=== PATIENT | female | born 1995 | race African-American/Black ===

== ENCOUNTER 2018-01-13 17:14 | Emergency (ER) | payer MEDICAID ==
[2018-01-13 17:35] VITALS: BP 164/100
--- NOTE | 2018-01-13 18:22 | ER Document Report ---
ED Medical Screen (RME) - General Chief Complaint: Vag Bleeding, +preg <12wks Stated Complaint: VAGINAL BLEEDING Time Seen by Provider: 01/13/18 18:16 Notes: 22-year-old female with untreated hypertension, LMP 12/11/2017, positive hCG 3 days ago, spotting 2 days with mild cramps. A1 TRAVEL OUTSIDE OF THE [place] IN LAST 30 DAYS: No - Related Data Allergies/Adverse Reactions: No Known Allergies Allergy (Verified 01/13/18 17:14) Physical Exam - Vital signs Vitals: Temp Pulse Resp BP Pulse Ox 98.7 F 81 16 164/100 H 100 01/13/18 17:33 01/13/18 17:33 01/13/18 17:33 01/13/18 17:33 01/13/18 17:33 Course - Vital Signs Vital signs: Temp Pulse Resp BP Pulse Ox 98.7 F 81 16 164/100 H 100 01/13/18 17:33 01/13/18 17:33 01/13/18 17:33 01/13/18 17:33 01/13/18 17:33
[2018-01-13 18:50] LABS: ABSOLUTE EOSINOPHILS # (AUTO) 0.1 10^3/uL (0.0-0.6); ABSOLUTE LYMPHOCYTES (AUTO) 1.4 10^3/uL (0.5-4.7); ABSOLUTE MONOCYTES (AUTO) 0.6 10^3/uL (0.1-1.4); ABSOLUTE NEUT (AUTO) 3.1 10^3/uL (1.7-8.2); BASOPHILS % (AUTO) 0.7 % (0-2); EOSINOPHILS % (AUTO) 1.3 % (0-6); HEMOGLOBIN 12.7 g/dL (12.0-15.5); LYMPHOCYTES % (AUTO) 26.8 % (13-45); MEAN CORPUSCULAR HEMOGLOBIN 26.8 pg (27.0-33.4); MEAN CORPUSCULAR HGB CONC 33.3 g/dL (32.0-36.0); MEAN CORPUSCULAR VOLUME 81 fl (80-97); MONOCYTES % (AUTO) 10.7 % (3-13); PLATELET COUNT 252 10^3/uL (150-450); RED BLOOD COUNT 4.72 10^6/uL (3.72-5.28); RED CELL DISTRIBUTION WIDTH 14.1 % (11.5-14.0); SEGMENTED NEUTROPHILS % (AUTO) 60.5 % (42-78); TOTAL CELLS COUNTED % (AUTO) 100 %; WHITE BLOOD COUNT 5.2 10^3/uL (4.0-10.5)
[2018-01-13 18:51] LABS: APPEARANCE,URINE CLEAR; BILIRUBIN,URINE NEGATIVE (NEGATIVE); COLOR,URINE YELLOW; GLUCOSE, URINE NEGATIVE (NEGATIVE); KETONES,URINE NEGATIVE (NEGATIVE); LEUKOCYTE ESTERASE,URINE NEGATIVE (NEGATIVE); NITRITE,URINE NEGATIVE (NEGATIVE); PROTEIN,URINE 30 mg/dL (NEGATIVE)
[2018-01-13 19:01] LABS: ALANINE AMINOTRANSFERASE 17 U/L (9-52); ALBUMIN 4.5 g/dL (3.5-5.0); ALKALINE PHOSPHATASE 121 U/L (38-126); ANION GAP 13 (5-19); ASPARTATE AMINO TRANSFERASE 22 U/L (14-36); BILIRUBIN,DIRECT 0.3 mg/dL (0.0-0.4); BILIRUBIN,TOTAL 0.3 mg/dL (0.2-1.3); BLOOD UREA NITROGEN 12 mg/dL (7-20); CALCIUM 9.6 mg/dL (8.4-10.2); CARBON DIOXIDE 27 mmol/L (22-30); CHLORIDE 105 mmol/L (98-107); GLUCOSE 87 mg/dL (75-110); POTASSIUM 3.9 mmol/L (3.6-5.0); SODIUM 144.7 mmol/L (137-145); TOTAL PROTEIN 7.7 g/dL (6.3-8.2)
--- NOTE | 2018-01-13 19:46 | ER Document Report ---
ED General - General Mode of Arrival: Ambulatory Information source: Patient TRAVEL OUTSIDE OF THE [place] IN LAST 30 DAYS: No <MARLI SALDIVAR - Last Filed: 01/13/18 22:49> <ALEJO PONCE - Last Filed: 01/14/18 01:39> - General Chief Complaint: Vag Bleeding, +preg <12wks Stated Complaint: VAGINAL BLEEDING Time Seen by Provider: 01/13/18 18:16 Notes: 22 y.o female with PMHx of asthma presents to the ED with vaginal bleeding of onset yesterday. Pt reports that her last menstrual period was December 11. This is her second , she had an 2 years ago, A1. Pt also notes intermittent cramping also of onset yesterday. She states there was a significant amount of blood. She denies any vomiting. She denies any other medical issues. (MARLI SALDIVAR) - Related Data Allergies/Adverse Reactions: No Known Allergies Allergy (Verified 01/13/18 17:14) Past Medical History - General Information source: Patient - Social History Smoking Status: Never Smoker Chew tobacco use (# tins/day): No Frequency of alcohol use: None Drug Abuse: None Family History: Reviewed & Not Pertinent Patient has suicidal ideation: No Patient has homicidal ideation: No Renal/ Medical History: Denies: Hx Peritoneal Dialysis <MARLI SALDIVAR - Last Filed: 01/13/18 22:49> Review of Systems - Review of Systems Constitutional: No symptoms reported EENT: No symptoms reported Cardiovascular: No symptoms reported Respiratory: No symptoms reported Gastrointestinal: See HPI, Abdominal pain. denies: Vomiting Genitourinary: No symptoms reported Female Genitourinary: See HPI, Last menstrual period - December 11, , Vaginal bleeding Musculoskeletal: No symptoms reported Skin: No symptoms reported Hematologic/Lymphatic: No symptoms reported Neurological/Psychological: No symptoms reported -: Yes All other systems reviewed and negative <MARLI SALDIVAR - Last Filed: 01/13/18 22:49> Physical Exam <MARLI SALDIVAR - Last Filed: 01/13/18 22:49> <ALEJO PONCE - Last Filed: 01/14/18 01:39> - Vital signs Vitals: Temp Pulse Resp BP Pulse Ox 98.7 F 81 16 164/100 H 100 01/13/18 17:33 01/13/18 17:33 01/13/18 17:33 01/13/18 17:33 01/13/18 17:33 - Notes Notes: Physical Exam: General: Alert, appears well. HEENT: Normocephalic. Atraumatic. PERRL. Extraocular movements intact. Oropharynx clear. Neck: Supple. Non-tender. Respiratory: No respiratory distress. Clear and equal breath sounds bilaterally. Cardiovascular: Regular rate and rhythm. Abdominal: Normal Inspection. Non-tender. No distension. Normal Bowel Sounds. Back: Non-tender. No deformity or step off. Extremities: Moves all four extremities. Upper extremities: Normal inspection. Normal ROM. Lower extremities: Normal inspection. No edema. Normal ROM. Neurological: Normal cognition. AAOx3. Normal speech. Psychological: Normal affect. Normal Mood. Skin: Warm. Dry. Normal color. (MARLI SALDIVAR) Course - Laboratory Result Diagrams: 01/13/18 18:36 01/13/18 18:36 <MARLI SALDIVAR - Last Filed: 01/13/18 22:49> - Laboratory Result Diagrams: 01/13/18 18:36 01/13/18 18:36 <ALEJO PONCE - Last Filed: 01/14/18 01:39> - Re-evaluation Re-evalutation: 01/13/18 20:41 Patient's test is negative. She states she had positive test January 10. Explained to patient if it was positive her beta hCG levels should still be detectable which were not today. Ultrasound also shows no evidence of regnancy. Patient states she is relieved. Will be discharged at this time (ALEJO PONCE) - Vital Signs Vital signs: Temp Pulse Resp BP Pulse Ox 98.7 F 81 16 164/100 H 100 01/13/18 17:33 01/13/18 17:33 01/13/18 17:33 01/13/18 17:33 01/13/18 17:33 - Laboratory Laboratory results interpreted by me: 01/13/18 01/13/18 17:35 18:36 MCH 26.8 L RDW 14.1 H Urine Protein 30 H Urine Blood LARGE H Urine Urobilinogen 2.0 H Discharge <MARLI SALDIVAR - Last Filed: 01/13/18 22:49> <ALEJO PONCE - Last Filed: 01/14/18 01:39> - Discharge Clinical Impression: Vaginal bleeding Condition: Good Disposition: HOME, SELF-CARE Instructions: Vaginal Bleeding ([facility]) Referrals: [facility] [NO LOCAL MD] - Follow up as needed Scribe Attestation: 01/14/18 01:39 I personally performed the services described documentation, reviewed and edited the documentation which was dictated to describe my presence, and it accurately records my words and actions. (ALEJO PONCE) Scribe Documentation - Scribe Written by Scribe:: Anna Rodgers [birth year] acting as scribe for :: Paulo <MARLI SALDIVAR - Last Filed: 01/13/18 22:49>
--- NOTE | 2018-01-13 20:12 | RADIOLOGY REPORT (SQ) ---
EXAM DESCRIPTION: U/S OB TRANSVAGINAL W/O DOP COMPLETED DATE/TIME: 01/13/2018 7:57 pm REASON FOR STUDY: LMP 6-1-18, +hCg, spotting, crampiong COMPARISON: None. TECHNIQUE: Transvaginal static and realtime grayscale images acquired of the pelvis. Additional elijah cted spectral and color Doppler images recorded. All images stored on PACs. bHCG: Less than 2.4 CLINICAL DATES: 4 weeks 5 days LIMITATIONS: None. FINDINGS: No IUP identified. UTERUS: No masses. No anomalies. CERVICAL LENGTH: 3.4 center Closed. RIGHT ADNEXA: Normal ovary with normal vascular flow. No adnexal free fluid. No adnexal masses. LEFT ADNEXA: Normal ovary with normal vascular flow. No adnexal free fluid. No adnexal masses. FREE FLUID: Trace. OTHER: No other significant finding. IMPRESSION: No IUP identified. No adnexal masses identified. Trimester of : First - 0 to 13 weeks. TECHNICAL DOCUMENTATION: JOB ID: [id number] 2010 [employer]- All Rights Reserved Reading location - IP/workstation name: [employer]
== END 2018-01-13 20:53 | disposition home or self-care (01) ==
LOC: ER 17:14
DX: N93.9 Abnormal uterine and vaginal bleeding, unspecified (principal); R10.9 Unspecified abdominal pain
CPT/HCPCS: 36415; 76817; 80053; 81001; 84702; 85025; 86900; 86901; 99284

== ENCOUNTER 2018-12-13 12:00 | Emergency (ER) | payer SELFPAY ==
--- NOTE | 2018-12-13 14:28 | ER Document Report ---
HPI - HPI Time Seen by Provider: 12/13/18 13:23 Pain Level: 3 Notes: Patient is an otherwise healthy 23-year-old female presenting with multiple complaints today. Patient reports right ear pain x2 days and also reports abscess to her right axilla x1 week. Patient reports history of abscess in the past, states that his drain on its own and she has never had an incision and drainage. Patient denies any chronic medical conditions and reports all immunizations are up-to-date. - CONSTITUTIONAL Constitutional: DENIES: Fever, Chills - EENT EENT: REPORTS: Ear Pain. DENIES: Sore Throat, Eye problems - NEURO Neurology: DENIES: Headache, Weakness, Vision blurred, Dizzinesss / Vertigo - CARDIOVASCULAR Cardiovascular: DENIES: Chest pain - RESPIRATORY Respiratory: DENIES: Trouble Breathing, Coughing - GASTROINTESTINAL Gastrointestinal: DENIES: Abdominal Pain, Black / Bloody Stools - URINARY Urinary: DENIES: Dysuria, Urgency, Frequency - REPRODUCTIVE Reproductive: DENIES: : - MUSCULOSKELETAL Musculoskeletal: DENIES: Extremity pain Past Medical History - General Information source: Patient - Social History Smoking Status: Never Smoker Chew tobacco use (# tins/day): No Frequency of alcohol use: None Drug Abuse: None Family History: Reviewed & Not Pertinent Patient has suicidal ideation: No Patient has homicidal ideation: No - Past Medical History Cardiac Medical History: Reports: Hx Hypertension Pulmonary Medical History: Reports: Hx Asthma Renal/ Medical History: Denies: Hx Peritoneal Dialysis Past Surgical History: Reports: Hx Gynecologic Surgery - D AND C Vertical Provider Document - CONSTITUTIONAL Notes: PHYSICAL EXAMINATION: GENERAL: Well-appearing, well-nourished and in no acute distress. HEAD: Atraumatic, normocephalic. EYES: Pupils equal round extraocular movements intact, conjunctiva are normal. ENT: Right TM erythematous and bulging, left TM unremarkable. NECK: Normal range of motion LUNGS: No respiratory distress Musculoskeletal: Normal range of motion NEUROLOGICAL: Normal speech, normal gait. PSYCH: Normal mood, normal affect. SKIN: Small area of erythema with induration and fluctuance noted to right axilla. - INFECTION CONTROL TRAVEL OUTSIDE OF THE [place] IN LAST 30 DAYS: No Course - Re-evaluation Re-evalutation: Examination consistent with otitis media. Abscess was incised and drained, patient tolerated procedure well, see procedure note. Patient discharged home in stable condition with strict ED return precautions. - Vital Signs Vital signs: Temp Pulse Resp BP Pulse Ox 98.6 F 75 18 168/104 H 100 12/13/18 12:12 12/13/18 12:12 12/13/18 12:12 12/13/18 12:12 12/13/18 12:12 Procedures - Incision and Drainage Right Axilla Type: Simple Blade size: 11 I&D procedure: Betadine prep applied Incision Method: Incision made by scalpel Discharge - Discharge Clinical Impression: Abscess Otitis media Qualifiers: Otitis media type: unspecified Chronicity: acute Qualified Code(s): H66.90 - Otitis media, unspecified, unspecified ear Condition: Stable Disposition: HOME, SELF-CARE Additional Instructions: You were seen for an abscess that required drainage. Please clean this area with soap and water twice daily and apply a topical antibiotic. Dress the area after each cleaning. Please return if you develop fever, vomiting, the pain at the site worsens, you notice spreading redness from the area, or you have any other symptoms that are concerning to you. Your child has been diagnosed as having an ear infection. Please give them the amoxicillin twice daily for 10 days. Follow-up with your retail wireless associate as needed. Return if your child becomes lethargic, has persistent vomiting, becomes confused, has facial swelling, worsening pain despite antibiotics, or any other symptoms that are concerning to you. You should give your child ibuprofen or Tylenol as needed for discomfort. Prescriptions: Amlodipine Besylate [Norvasc 5 mg Tablet] 5 mg PO DAILY #30 tablet Cephalexin [Cephalexin 500 MG Tablet] 1 tab PO QID #28 tablet
[2018-12-13 14:44] VITALS: BP 148/99
== END 2018-12-13 14:41 | disposition home or self-care (01) ==
LOC: ER 12:00
PROC: 0H9BXZZ Drainage of Right Upper Arm Skin, External Approach (ICD-10-PCS; principal; 2018-12-13)
DX: L02.411 Cutaneous abscess of right axilla (principal); H66.91 Otitis media, unspecified, right ear
CPT/HCPCS: 99283

== ENCOUNTER 2019-10-18 10:17 | Inpatient (IN) | payer MEDICAID ==
[2019-10-18] MEDS ORDERED: HYDRALAZINE HCL INJ/PF 20 MG/1 ML SDV ONE ×2 (10:59→16:59)
[2019-10-18 12:03] LABS: ABSOLUTE BASOPHILS # (AUTO) 0.1 10^3/uL (0.0-0.2); ABSOLUTE LYMPHOCYTES (AUTO) 1.1 10^3/uL (0.5-4.7); ABSOLUTE MONOCYTES (AUTO) 0.5 10^3/uL (0.1-1.4); ABSOLUTE NEUT (AUTO) 6.5 10^3/uL (1.7-8.2); BASOPHILS % (AUTO) 0.6 % (0-2); EOSINOPHILS % (AUTO) 0.5 % (0-6); HEMATOCRIT 35.6 % (36.0-47.0); HEMOGLOBIN 12.6 g/dL (12.0-15.5); LYMPHOCYTES % (AUTO) 13.8 % (13-45); MEAN CORPUSCULAR HEMOGLOBIN 29.1 pg (27.0-33.4); MEAN CORPUSCULAR HGB CONC 35.6 g/dL (32.0-36.0); MEAN CORPUSCULAR VOLUME 82 fl (80-97); MONOCYTES % (AUTO) 6.2 % (3-13); PLATELET COUNT 165 10^3/uL (150-450); RED BLOOD COUNT 4.35 10^6/uL (3.72-5.28); RED CELL DISTRIBUTION WIDTH 14.6 % (11.5-14.0); SEGMENTED NEUTROPHILS % (AUTO) 78.9 % (42-78); TOTAL CELLS COUNTED % (AUTO) 100 %; WHITE BLOOD COUNT 8.3 10^3/uL (4.0-10.5)
[2019-10-18 12:19] LABS: ALBUMIN 3.4 g/dL (3.5-5.0); ALKALINE PHOSPHATASE 292 U/L (38-126); ANION GAP 9 (5-19); ASPARTATE AMINO TRANSFERASE 26 U/L (14-36); BILIRUBIN,DIRECT 0.2 mg/dL (0.0-0.4); BILIRUBIN,TOTAL 0.5 mg/dL (0.2-1.3); BLOOD UREA NITROGEN 13 mg/dL (7-20); CALCIUM 8.8 mg/dL (8.4-10.2); CARBON DIOXIDE 16 mmol/L (22-30); CHLORIDE 108 mmol/L (98-107); POTASSIUM 4.1 mmol/L (3.6-5.0); TOTAL PROTEIN 6.2 g/dL (6.3-8.2); URIC ACID 6.9 mg/dL (2.5-6.2)
[2019-10-18 12:23] LABS: GLUCOSE 65 mg/dL (75-110)
[2019-10-18 12:42] LABS: APPEARANCE,URINE CLEAR; BILIRUBIN,URINE NEGATIVE (NEGATIVE); COLOR,URINE STRAW; GLUCOSE, URINE NEGATIVE (NEGATIVE); KETONES,URINE NEGATIVE (NEGATIVE); LEUKOCYTE ESTERASE,URINE NEGATIVE (NEGATIVE); NITRITE,URINE NEGATIVE (NEGATIVE); PROTEIN,URINE 100 mg/dL (NEGATIVE); URINE SPECIFIC GRAVITY 1.005; UROBILINOGEN,URINE NEGATIVE mg/dL (<2.0)
[2019-10-18 12:56] LABS: URINE AMPHETAMINES SCREEN NEGATIVE; URINE BARBITURATES SCREEN NEGATIVE; URINE BENZODIAZEPINES SCREEN NEGATIVE; URINE COCAINE SCREEN NEGATIVE; URINE MARIJUANA (THC) SCREEN NEGATIVE; URINE METHADONE SCREEN NEGATIVE; URINE PHENCYCLIDINE SCREEN NEGATIVE
[2019-10-18 13:00] LABS: URINE CREATININE 30.8 mg/dL (16-327)
[2019-10-18 13:05] LABS: UR PRO/CREAT RATIO RESULT 8.1 mg/mg (0.0-0.2); URINE PROTEIN 248.3 mg/dL (<12)
--- NOTE | 2019-10-18 14:16 | Admission Physical ---
Datetime Report Generated by CPN: 10/18/2019 14:16 CURRENT ADMISSION Chief Complaint: Sent from OB Office for Evaluation and Treatment - Please Specify Indication for Induction: Not Applicable Admit Impression : , Intrauterine ; No Active Labor; Obstetrical Complication Admit Impression- Other: 35.5 wk IUP CHTN with superimposed pre-eclampsia--has been on Labetalol + CT x 2 RH neg Admit Plan: Admit to Unit; Observation/Evaluation ALLERGIES Medication Allergies: No Known Allergies (10/18/2019) OBSTETRICAL HISTORY EDC: 11/17/2019 00:00 PHYSICAL EXAM General: Normal HEENT: Normal Neurologic: Normal Thyroid: Deferred Heart: Normal Lungs: Normal Breast: Deferred Back: Deferred Abdomen: Normal Genitourinary Exam: Normal Extremities: Normal DTRs: Abnormal Pelvic Type: Adequate Physical Exam Comments: DTRs Brisk bilaterally No Clonus Denies H/a Denies Vision changes Denies epigastric pain Strong vaginal odor, will order Flagyl SATHISH for TC Vital Signs: Reviewed VAGINAL EXAM Dilatation: 1 Effacement: 0 Station: -2 MEMBRANES Membranes: Intact FETUS A EGA: 35.5 FHR- Baseline: 135 Variability: Moderate 6-25bpm Accelerations: 15X15 Decelerations: Variable FHR Category: Category I Estimated Weight (gm): 2500 Presentation: Vertex Admit Comment: Admit for BP management, 24*urine, repeat labs, steroids, sono of baby for growth/renaldo Sent from [facility] with Severe range BPs 183/130, 192/134, 217/148 Collect GBS C/W Dr. Lee for POC INFORMED CONSENT Assignment: Janice Lee MD Signature: with User ID: [email or web address] : with User ID: [email or web address]
[2019-10-18] MEDS ORDERED: METRONIDAZOLE 500 MG TABLET PO ONE (14:25)
[2019-10-18] MEDS ORDERED: BETAMET ACET/BETAMET NA INJ 6 MG/1 ML IM ONE (14:27)
[2019-10-18] MEDS ORDERED: BETAMET ACET/BETAMET NA INJ 6 MG/1 ML ONE (14:40)
--- NOTE | 2019-10-18 14:48 | RADIOLOGY REPORT (SQ) ---
EXAM DESCRIPTION: U/S OB LIMITED IMAGES COMPLETED DATE/TIME: 10/18/2019 2:40 pm REASON FOR STUDY: severe HTN COMPARISON: None. TECHNIQUE: Limited transabdominal grayscale ultrasound for evaluation of specific requested obstetri ashok parameters. LIMITATIONS: None. FINDINGS: CERVICAL LENGTH: 2.8 cm. Closed. RICO: 12.3 cm. FHR: 143 beats per minute. PRESENTATION: Cephalic. PLACENTA: Posterior ANATOMY: Not assessed OTHER: Estimated gestational age is 32 weeks 5 days. IMPRESSION: LIMITED OBSTETRICAL ULTRASOUND WITH MEASURED PARAMETERS DELINEATED ABOVE. Trimester of : Third trimester - 28 weeks to delivery. TECHNICAL DOCUMENTATION: JOB ID: [id number] 2010 [employer]- All Rights Reserved Reading location - IP/workstation name: [email or web address]
[2019-10-18] MEDS ORDERED: METRONIDAZOLE 500 MG TABLET ONE (15:04)
[2019-10-18] MEDS ORDERED: LABETALOL HCL 200 MG TABLET ONE ×2 (16:07→21:53)
[2019-10-18] MEDS ORDERED: HYDRALAZINE HCL INJ/PF 20 MG/1 ML SDV IV PRN (16:10)
[2019-10-18] MEDS: LABETALOL HCL 200 MG TABLET PO SCH ×2 (16:10→21:57)
[2019-10-18 16:49] LABS: CHLAM PCR NOT DETECTED (NOT DETECT)
[2019-10-18] MEDS ORDERED: NIFEDIPINE 30 MG TAB.ER.24 PO ONE (17:49)
[2019-10-19] MEDS ORDERED: LABETALOL HCL 200 MG TABLET ONE (05:57)
[2019-10-19] MEDS: LABETALOL HCL 200 MG TABLET PO SCH ×3 (06:01→22:07)
[2019-10-19 06:32] LABS: ABSOLUTE LYMPHOCYTES (AUTO) 0.9 10^3/uL (0.5-4.7); ABSOLUTE MONOCYTES (AUTO) 0.2 10^3/uL (0.1-1.4); ABSOLUTE NEUT (AUTO) 8.1 10^3/uL (1.7-8.2); BASOPHILS % (AUTO) 0.2 % (0-2); HEMATOCRIT 34.2 % (36.0-47.0); HEMOGLOBIN 11.9 g/dL (12.0-15.5); LYMPHOCYTES % (AUTO) 9.8 % (13-45); MEAN CORPUSCULAR HEMOGLOBIN 29.1 pg (27.0-33.4); MEAN CORPUSCULAR HGB CONC 34.9 g/dL (32.0-36.0); MEAN CORPUSCULAR VOLUME 83 fl (80-97); MONOCYTES % (AUTO) 2.4 % (3-13); PLATELET COUNT 185 10^3/uL (150-450); RED CELL DISTRIBUTION WIDTH 14.7 % (11.5-14.0); SEGMENTED NEUTROPHILS % (AUTO) 87.6 % (42-78); TOTAL CELLS COUNTED % (AUTO) 100 %; WHITE BLOOD COUNT 9.2 10^3/uL (4.0-10.5)
[2019-10-19 06:56] LABS: ALBUMIN 3.4 g/dL (3.5-5.0); ALKALINE PHOSPHATASE 266 U/L (38-126); ANION GAP 12 (5-19); ASPARTATE AMINO TRANSFERASE 28 U/L (14-36); BILIRUBIN,DIRECT 0.2 mg/dL (0.0-0.4); BILIRUBIN,TOTAL 0.5 mg/dL (0.2-1.3); BLOOD UREA NITROGEN 19 mg/dL (7-20); CALCIUM 9.5 mg/dL (8.4-10.2); CARBON DIOXIDE 15 mmol/L (22-30); CHLORIDE 107 mmol/L (98-107); GLUCOSE 105 mg/dL (75-110); POTASSIUM 4.4 mmol/L (3.6-5.0); TOTAL PROTEIN 6.4 g/dL (6.3-8.2)
[2019-10-19] MEDS: NIFEDIPINE 30 MG TAB.ER.24 PO SCH ×2 (08:43→10:42)
[2019-10-19 14:22] LABS: 24 HOUR URINE PROTEIN RESULT 2336 mg/day (42-225); URINE PROTEIN 284.9 mg/dL (<12)
[2019-10-19] MEDS ORDERED: BETAMET ACET/BETAMET NA INJ 6 MG/1 ML IM SCH ×2 (14:46→15:15)
[2019-10-19] MEDS ORDERED: BETAMET ACET/BETAMET NA INJ 6 MG/1 ML IM ONE (15:30)
--- NOTE | 2019-10-19 21:04 | Non Stress Test Report ---
Non Stress Test Datetime Report Generated by CPN: 10/19/2019 21:03 DEMOGRAPHIC EGA NST: 35.6 VITAL SIGNS Temperature - NST: 98.3 Pulse - NST: 98 RESP - NST: 18 NBPSYS NST: 115 NBPDIA NST: 65 MONITORING Monitor Explained: Monitor Explained; Test Explained; Patient Verbalized Understanding Time on Monitor: 10/19/2019 07:20 Time off Monitor: 10/19/2019 07:45 NST Duration: 25 NST INTERVENTIONS NST Interventions: PO Hydration Physician Notified NST: Dr Martínez BABY A: [id number] BABY A Movement : Present Contraction Frequency : none FHR Baseline : 135 Accelerations : 15X15 Decelerations : None Variability : Moderate 6-25bpm NST Review: Meets Criteria for Reactive NST NST Review and Verified By : B Baidy RN NST Results: Reactive NST REPORT Report Trigger: Send Report
[2019-10-20] MEDS ORDERED: MAG HYDROX/AL HYDROX/SIMETH SUSP 30 ML UDCUP PO PRN (02:08)
[2019-10-20] MEDS ORDERED: ZOLPIDEM TARTRATE 5 MG TABLET PO PRN (02:08)
[2019-10-20] MEDS ORDERED: ACETAMINOPHEN 325 MG TABLET PO PRN (02:08)
[2019-10-20] MEDS ORDERED: DINOPROSTONE 10 MG VAGINAL INSERT.SR PV ONE (02:08)
[2019-10-20] MEDS ORDERED: DINOPROSTONE 10 MG VAGINAL INSERT.SR ONE (02:55)
[2019-10-20] MEDS ORDERED: LABETALOL HCL 200 MG TABLET ONE ×3 (05:58→23:26)
[2019-10-20] MEDS: LABETALOL HCL 200 MG TABLET PO SCH ×3 (06:02→23:43)
[2019-10-20] MEDS ORDERED: MAGNESIUM SULFATE 4 GM/100 ML RTUPB IV ONE ×2 (09:22→09:42)
[2019-10-20] MEDS ORDERED: MAGNESIUM SULFATE 20 GM/500 ML RTUINJ IV ONE (09:42)
[2019-10-20] MEDS ORDERED: NIFEDIPINE 30 MG TAB.ER.24 PO ONE (09:42)
[2019-10-20] MEDS: NIFEDIPINE 30 MG TAB.ER.24 PO SCH (09:43)
[2019-10-20 09:59] LABS: HEMOGLOBIN 10.9 g/dL (12.0-15.5); MEAN CORPUSCULAR HEMOGLOBIN 28.6 pg (27.0-33.4); MEAN CORPUSCULAR HGB CONC 34.2 g/dL (32.0-36.0); MEAN CORPUSCULAR VOLUME 84 fl (80-97); PLATELET COUNT 189 10^3/uL (150-450); RED BLOOD COUNT 3.83 10^6/uL (3.72-5.28); RED CELL DISTRIBUTION WIDTH 14.8 % (11.5-14.0); WHITE BLOOD COUNT 11.3 10^3/uL (4.0-10.5)
[2019-10-20] MEDS ORDERED: PENICILLIN G POTASSIUM 5,000,000 UNIT in DEXTROSE 5%-WATER 100 ML IV ONE (10:00)
[2019-10-20] MEDS: MAGNESIUM SULFATE 20 GM/500 ML RTUINJ IV PRN (10:33)
[2019-10-20 10:40] LABS: ALBUMIN 3.1 g/dL (3.5-5.0); ALKALINE PHOSPHATASE 256 U/L (38-126); ANION GAP 7 (5-19); ASPARTATE AMINO TRANSFERASE 23 U/L (14-36); BILIRUBIN,TOTAL 0.3 mg/dL (0.2-1.3); BLOOD UREA NITROGEN 18 mg/dL (7-20); CALCIUM 8.9 mg/dL (8.4-10.2); CARBON DIOXIDE 18 mmol/L (22-30); CHLORIDE 110 mmol/L (98-107); GLUCOSE 170 mg/dL (75-110); POTASSIUM 4.5 mmol/L (3.6-5.0); TOTAL PROTEIN 6.1 g/dL (6.3-8.2); URIC ACID 8.5 mg/dL (2.5-6.2)
[2019-10-20] MEDS: PENICILLIN G POTASSIUM 2,500,000 UNIT in DEXTROSE 5%-WATER 50 ML IV SCH ×3 (14:49→23:30)
[2019-10-20] MEDS ORDERED: MISOPROSTOL 0.2 MG TABLET ONE (16:29)
[2019-10-20] MEDS ORDERED: OXYTOCIN 10 UNIT/ML VIAL ONE (16:29)
[2019-10-20] MEDS ORDERED: OXYTOCIN/NORMAL SALINE 20 UNIT/1,000 ML RTUINJ ONE (16:30)
[2019-10-20] MEDS ORDERED: LIDOCAINE 1% INJ-PF (10 MG/ML) 30 ML SDV ONE (16:30)
[2019-10-20] MEDS: OXYTOCIN/NORMAL SALINE 20 UNIT/1,000 ML RTUINJ IV PRN (16:48)
[2019-10-20] MEDS ORDERED: HYDROMORPHONE HCL INJ/PF 2 MG/ML AMPULE ONE (17:44)
[2019-10-20] MEDS ORDERED: HYDROMORPHONE HCL INJ/PF 2 MG/ML AMPULE IV ONE (18:45)
[2019-10-20 20:33] LABS: HEMATOCRIT 36.7 % (36.0-47.0); HEMOGLOBIN 12.5 g/dL (12.0-15.5); MEAN CORPUSCULAR HEMOGLOBIN 28.4 pg (27.0-33.4); MEAN CORPUSCULAR HGB CONC 33.9 g/dL (32.0-36.0); MEAN CORPUSCULAR VOLUME 84 fl (80-97); PLATELET COUNT 198 10^3/uL (150-450); RED BLOOD COUNT 4.39 10^6/uL (3.72-5.28); RED CELL DISTRIBUTION WIDTH 15.1 % (11.5-14.0); WHITE BLOOD COUNT 12.7 10^3/uL (4.0-10.5)
[2019-10-20] MEDS ORDERED: HYDRALAZINE HCL INJ/PF 20 MG/1 ML SDV IV ONE (20:33)
[2019-10-20] MEDS ORDERED: HYDRALAZINE HCL INJ/PF 20 MG/1 ML SDV ONE (20:34)
[2019-10-20] MEDS ORDERED: PENICILLIN G-K 5 MILLION UNIT VIAL ONE (23:31)
[2019-10-21] MEDS: PENICILLIN G POTASSIUM 2,500,000 UNIT in DEXTROSE 5%-WATER 50 ML IV SCH ×6 (02:36→21:30)
[2019-10-21] MEDS ORDERED: LABETALOL HCL 200 MG TABLET ONE ×3 (05:55→21:16)
[2019-10-21] MEDS ORDERED: MAGNESIUM SULFATE 20 GM/500 ML RTUINJ IV ONE (05:56)
[2019-10-21] MEDS: MAGNESIUM SULFATE 20 GM/500 ML RTUINJ IV PRN (06:07)
[2019-10-21] MEDS: LABETALOL HCL 200 MG TABLET PO SCH ×3 (06:54→21:30)
[2019-10-21] MEDS: RINGERS SOLUTION,LACTATED 1,000 ML IV PRN ×2 (09:12→21:30)
[2019-10-21] MEDS ORDERED: NIFEDIPINE 30 MG TAB.ER.24 PO ONE (09:44)
[2019-10-21] MEDS: NIFEDIPINE 30 MG TAB.ER.24 PO SCH (09:59)
[2019-10-21] MEDS ORDERED: OXYTOCIN/NORMAL SALINE 20 UNIT/1,000 ML RTUINJ ONE (15:56)
[2019-10-21] MEDS: OXYTOCIN/NORMAL SALINE 20 UNIT/1,000 ML RTUINJ IV PRN (16:01)
[2019-10-21] MEDS ORDERED: PENICILLIN G-K 5 MILLION UNIT VIAL ONE (21:17)
[2019-10-22] MEDS ORDERED: OXYTOCIN/NORMAL SALINE 20 UNIT/1,000 ML RTUINJ ONE ×2 (00:16→07:46)
[2019-10-22] MEDS ORDERED: PENICILLIN G-K 5 MILLION UNIT VIAL ONE ×2 (02:33→05:41)
[2019-10-22] MEDS: PENICILLIN G POTASSIUM 2,500,000 UNIT in DEXTROSE 5%-WATER 50 ML IV SCH ×3 (02:54→10:54)
[2019-10-22] MEDS ORDERED: LABETALOL HCL 200 MG TABLET ONE (05:41)
[2019-10-22] MEDS: LABETALOL HCL 200 MG TABLET PO SCH ×3 (05:45→21:27)
[2019-10-22] MEDS ORDERED: PROMETHAZINE HCL INJ 25 MG/1 ML VIAL IV PRN (06:55)
[2019-10-22] MEDS ORDERED: OXYTOCIN/NORMAL SALINE 20 UNIT/1,000 ML RTUINJ IV PRN (06:55)
[2019-10-22] MEDS ORDERED: HYDROMORPHONE HCL INJ/PF 2 MG/ML AMPULE IV PRN (06:55)
[2019-10-22] MEDS ORDERED: OXYCODONE-ACETAMINOPHEN 5-325 MG TABLET PO PRN (06:55)
[2019-10-22] MEDS ORDERED: DEXTROSE 40% GEL 15 GM TUBE PO PRN ×2 (06:55)
[2019-10-22] MEDS ORDERED: ACETAMINOPHEN 325 MG TABLET PO PRN (06:55)
[2019-10-22] MEDS ORDERED: GLUCAGON,HUMAN RECOMB 1 MG INJ SUBCUT PRN (06:55)
[2019-10-22] MEDS ORDERED: ACETAMINOPHEN 1,000 MG/100 ML RTUPB IV PRN (06:55)
[2019-10-22] MEDS ORDERED: DEXTROSE 50%-WATER 25 GM/50 ML DISP.SYRIN IV PRN ×2 (06:55)
[2019-10-22] MEDS ORDERED: RINGERS SOLUTION,LACTATED 1,000 ML IV PRN (06:55)
[2019-10-22] MEDS ORDERED: SIMETHICONE 80 MG TAB.CHEW PO PRN (06:55)
[2019-10-22] MEDS ORDERED: DIPH/PERTUSS(ACELL)/TETANUS VAC/PF 0.5 ML SYR (>=10YO) IM PRN (06:55)
[2019-10-22] MEDS ORDERED: MEASLES,MUMPS&RUBELLA VACC/PF 0.5 ML VIAL SUBCUT PRN (06:55)
[2019-10-22] MEDS ORDERED: CITRIC ACID/SODIUM CITRATE ORAL SOLN 15 ML UDCUP ONE (07:02)
[2019-10-22] MEDS ORDERED: CEFAZOLIN 1 GM/D5W RTU 1 GM/50 ML RTUPB IV ONE (07:02)
[2019-10-22] MEDS ORDERED: KETOROLAC TROMETHAMINE INJ/PF 30 MG/1 ML SDV IV ONE (07:15)
[2019-10-22] MEDS ORDERED: OXYTOCIN 10 UNIT/ML VIAL ONE (07:46)
[2019-10-22] MEDS ORDERED: DEXAMETHASONE SOD PHOSPHATE INJ 4 MG/1 ML VIAL ONE (07:46)
[2019-10-22] MEDS ORDERED: MIDAZOLAM 2 MG/2 ML INJ ONE (07:46)
[2019-10-22] MEDS ORDERED: MORPHINE SULFATE 10 MG/ML INJ ONE (07:46)
[2019-10-22] MEDS ORDERED: ONDANSETRON HCL INJ/PF 4 MG/2 ML SDV ONE (07:47)
[2019-10-22 08:12] LABS: ABSOLUTE LYMPHOCYTES (AUTO) 1.3 10^3/uL (0.5-4.7); ABSOLUTE MONOCYTES (AUTO) 0.8 10^3/uL (0.1-1.4); ABSOLUTE NEUT (AUTO) 7.1 10^3/uL (1.7-8.2); BASOPHILS % (AUTO) 0.1 % (0-2); EOSINOPHILS % (AUTO) 0.1 % (0-6); HEMATOCRIT 35.4 % (36.0-47.0); HEMOGLOBIN 12.2 g/dL (12.0-15.5); LYMPHOCYTES % (AUTO) 14.2 % (13-45); MEAN CORPUSCULAR HEMOGLOBIN 28.8 pg (27.0-33.4); MEAN CORPUSCULAR HGB CONC 34.6 g/dL (32.0-36.0); MEAN CORPUSCULAR VOLUME 83 fl (80-97); MONOCYTES % (AUTO) 8.7 % (3-13); PLATELET COUNT 180 10^3/uL (150-450); RED BLOOD COUNT 4.25 10^6/uL (3.72-5.28); RED CELL DISTRIBUTION WIDTH 14.9 % (11.5-14.0); SEGMENTED NEUTROPHILS % (AUTO) 76.9 % (42-78); TOTAL CELLS COUNTED % (AUTO) 100 %; WHITE BLOOD COUNT 9.3 10^3/uL (4.0-10.5)
--- NOTE | 2019-10-22 09:09 | Operative Report ---
Operative Report DATE OF SURGERY: 10/22/19 PREOPERATIVE DIAGNOSIS: Preeclampsia, failed induction POSTOPERATIVE DIAGNOSIS: Same OPERATION: Primary via low transverse uterine incision SURGEON: RUTHIE WATSON ANESTHESIA: Spinal TISSUE REMOVED OR ALTERED: Placenta COMPLICATIONS: None ESTIMATED BLOOD LOSS: 250 cc INTRAOPERATIVE FINDINGS: Viable male direct OP presentation PROCEDURE: Patient was taken to the OR and placed in supine position after her spinal anesthesia. She is prepared and draped in sterile fashion. De Santiago was placed for drainage of the bladder. Low transverse incision was made and carried down the level of the fascia. The fascial incision was made with knife and extended bilaterally with curved Ramirez scissors. The fascia was off the rectus muscles using sharp and blunt dissection. The rectus muscles are in the midline. The peritoneum was entered without incident. Bladder blade was placed in uterine segment was identified. A low transverse incision was made creating a bladder flap. Bladder blade was placed low transverse uterine incision was made with the knife and extended with fingertips. The baby was delivered with some fundal pressure. Mouth and nose were suctioned free. Presentation was OP the cord is doubly clamped and cut. Baby is passed off to the sustainability project coordinator in attendance. The placenta was manually extracted with trailing membranes. The uterus was externalized wrapped in a moist lap sponge. Uterine contents wiped free. Uterus was closed with a running locking layer of 0 chromic suture using the second layer to imbricate the first completing a double layer closure of the uterus. The serosa was closed with a running 2-0 chromic stitch. The pelvis was irrigated and suctioned free of fluid the uterus was replaced in the abdomen. The abdominal wall peritoneum was closed with running 2-0 chromic stitch. Fascia was closed with a running 0 Vicryl in 2 segments. Heike's layer was brought together with 0 plain gut stitch and the skin was closed with running subcuticular 4-0 undyed Vicryl stitch. The wound was dressed mother and baby did well.
[2019-10-22] MEDS ORDERED: ACETAMINOPHEN 1,000 MG/100 ML RTUPB IV ONE (09:30)
[2019-10-22] MEDS ORDERED: KETOROLAC TROMETHAMINE INJ/PF 30 MG/1 ML SDV ONE (09:30)
[2019-10-22] MEDS ORDERED: NIFEDIPINE 30 MG TAB.ER.24 PO ONE (10:27)
[2019-10-22] MEDS: NIFEDIPINE 30 MG TAB.ER.24 PO SCH (10:27)
[2019-10-22] MEDS: PRENATAL VITAMIN W DHA CAPSULE PO SCH (10:54)
[2019-10-22] MEDS ORDERED: IBUPROFEN 800 MG TABLET PO SCH (12:00)
[2019-10-22] MEDS: DOCUSATE SODIUM 100 MG CAPSULE PO SCH ×2 (13:03→21:27)
[2019-10-22] MEDS: KETOROLAC TROMETHAMINE INJ/PF 30 MG/1 ML SDV IV SCH ×2 (15:10→21:28)
[2019-10-23] MEDS: LABETALOL HCL 200 MG TABLET PO SCH ×3 (06:21→23:05)
[2019-10-23] MEDS: IBUPROFEN 800 MG TABLET PO SCH ×3 (06:22→18:09)
[2019-10-23] MEDS: OXYCODONE-ACETAMINOPHEN 5-325 MG TABLET PO PRN (06:29)
[2019-10-23 06:58] LABS: HEMATOCRIT 28.6 % (36.0-47.0); MEAN CORPUSCULAR HEMOGLOBIN 29.2 pg (27.0-33.4); MEAN CORPUSCULAR HGB CONC 35.2 g/dL (32.0-36.0); MEAN CORPUSCULAR VOLUME 83 fl (80-97); PLATELET COUNT 162 10^3/uL (150-450); RED BLOOD COUNT 3.45 10^6/uL (3.72-5.28); RED CELL DISTRIBUTION WIDTH 14.5 % (11.5-14.0); WHITE BLOOD COUNT 13.1 10^3/uL (4.0-10.5)
[2019-10-23 07:30] LABS: HEMOGLOBIN 10.1 g/dL (12.0-15.5)
--- NOTE | 2019-10-23 09:00 | PDOC PROGRESS REPORT ---
Subjective Progress Note for:: 10/23/19 Subjective:: doing well. no problems. POD#1 Reason For Visit: Physical Exam - Physical Exam Vital Signs: Temp Pulse Resp BP Pulse Ox 97.6 F 90 16 153/83 H 100 10/23/19 07:11 10/23/19 07:11 10/23/19 07:11 10/23/19 07:11 10/23/19 07:11 Intake & Output 10/22/19 10/23/19 10/24/19 06:59 06:59 06:59 Intake Total 1999 1739 Output Total 1675 Balance 1999 65 General appearance: PRESENT: no acute distress, cooperative - incision c/d/intact Result Laboratory Results: 10/23/19 06:39 10/20/19 09:43 10/23/19 10/23/19 06:39 06:39 WBC 13.1 H RBC 3.45 L Hgb 10.1 L D Hct 28.6 L MCV 83 MCH 29.2 MCHC 35.2 RDW 14.5 H Plt Count 162 Blood Type B NEGATIVE Impressions: Obstetrics Ultrasound 10/18/19 00:00 IMPRESSION: LIMITED OBSTETRICAL ULTRASOUND WITH MEASURED PARAMETERS DELINEATED ABOVE. Trimester of : Third trimester - 28 weeks to delivery. Assessment & Plan - Diagnosis (1) Chronic hypertension with superimposed preeclampsia Is this a current diagnosis for this admission?: Yes (2) IUGR (intrauterine growth restriction) Is this a current diagnosis for this admission?: Yes (3) Rh negative state in antepartum period Is this a current diagnosis for this admission?: Yes - Time Time Spent with patient: Less than 15 minutes Anticipated discharge: Home Within: within 24 hours - Inpatient Certification Based on my medical assessment, after consideration of the patient's comorbidities, presenting symptoms, or acuity I expect that the services needed warrant INPATIENT care.: Yes I certify that my determination is in accordance with my understanding of Medicare's requirements for reasonable and necessary INPATIENT services [42 CFR 412.3e].: Yes Medical Necessity: Need Close Monitoring Due to Risk of Patient Decompensation, Need for Pain Control - Plan Summary Plan Summary: plan for discharge home in AM
[2019-10-23] MEDS: PRENATAL VITAMIN W DHA CAPSULE PO SCH (11:30)
[2019-10-23] MEDS: DOCUSATE SODIUM 100 MG CAPSULE PO SCH ×2 (11:30→18:09)
[2019-10-23] MEDS: NIFEDIPINE 30 MG TAB.ER.24 PO SCH (11:46)
[2019-10-23] MEDS ORDERED: NIFEDIPINE 30 MG TAB.ER.24 PO ONE (16:45)
[2019-10-24] MEDS: IBUPROFEN 800 MG TABLET PO SCH ×5 (00:40→23:19)
[2019-10-24] MEDS: OXYCODONE-ACETAMINOPHEN 5-325 MG TABLET PO PRN (03:48)
[2019-10-24] MEDS: LABETALOL HCL 200 MG TABLET PO SCH ×3 (05:07→23:09)
[2019-10-24] MEDS: DOCUSATE SODIUM 100 MG CAPSULE PO SCH ×2 (09:30→18:26)
[2019-10-24] MEDS: PRENATAL VITAMIN W DHA CAPSULE PO SCH (09:30)
[2019-10-24] MEDS: NIFEDIPINE 30 MG TAB.ER.24 PO SCH (09:30)
--- NOTE | 2019-10-24 10:03 | PDOC DISCHARGE SUMMARY ---
Impression - Admit/DC Date/PCP Admission Date/Primary Care Provider: 10/18/19 13:41 Discharge Date: 10/24/19 - Discharge Diagnosis (1) Chronic hypertension with superimposed preeclampsia Is this a current diagnosis for this admission?: Yes (2) IUGR (intrauterine growth restriction) Is this a current diagnosis for this admission?: Yes (3) Rh negative state in antepartum period Is this a current diagnosis for this admission?: Yes - Additional Information Discharge Diet: Regular Discharge Activity: Balance Activity w/Rest, No Lifting Over 10 Pounds, No Lifting/Push/Pulling, Pelvic Rest, No tub bath Prescriptions: Ibuprofen [Motrin 800 mg Tablet] 800 mg PO Q8HP PRN #60 tablet PRN Reason: Labetalol HCl [Normodyne 200 mg Tablet] 200 mg PO Q8 #90 tablet Oxycodone HCl/Acetaminophen [Percocet 5-325 mg Tablet] 1 tab PO Q4HP PRN #30 tablet PRN Reason: Nifedipine [Procardia XL 30 mg Tablet] 60 mg PO DAILY #30 tab.er.24 Home Medications: Vits96/Iron Fum/Folic [ Tablet] 1 tab PO DAILY 10/18/19 Ibuprofen [Motrin 800 mg Tablet] 800 mg PO Q8HP PRN #60 tablet 10/24/19 Labetalol HCl [Normodyne 200 mg Tablet] 200 mg PO Q8 #90 tablet 10/24/19 Nifedipine [Procardia XL 30 mg Tablet] 60 mg PO DAILY #30 tab.er.24 10/24/19 Oxycodone HCl/Acetaminophen [Percocet 5-325 mg Tablet] 1 tab PO Q4HP PRN #30 tablet 10/24/19 Results Laboratory Results: WBC 13.1 10^3/uL (4.0-10.5) H 10/23/19 06:39 RBC 3.45 10^6/uL (3.72-5.28) L 10/23/19 06:39 Hgb 10.1 g/dL (12.0-15.5) L D 10/23/19 06:39 Hct 28.6 % (36.0-47.0) L 10/23/19 06:39 MCV 83 fl (80-97) 10/23/19 06:39 MCH 29.2 pg (27.0-33.4) 10/23/19 06:39 MCHC 35.2 g/dL (32.0-36.0) 10/23/19 06:39 RDW 14.5 % (11.5-14.0) H 10/23/19 06:39 Plt Count 162 10^3/uL (150-450) 10/23/19 06:39 Lymph % (Auto) 14.2 % (13-45) 10/22/19 07:45 Bartholomew % (Auto) 8.7 % (3-13) 10/22/19 07:45 Eos % (Auto) 0.1 % (0-6) 10/22/19 07:45 Baso % (Auto) 0.1 % (0-2) 10/22/19 07:45 Absolute Neuts (auto) 7.1 10^3/uL (1.7-8.2) 10/22/19 07:45 Absolute Lymphs (auto) 1.3 10^3/uL (0.5-4.7) 10/22/19 07:45 Absolute Monos (auto) 0.8 10^3/uL (0.1-1.4) 10/22/19 07:45 Absolute Eos (auto) 0.0 10^3/uL (0.0-0.6) 10/22/19 07:45 Absolute Basos (auto) 0.0 10^3/uL (0.0-0.2) 10/22/19 07:45 Seg Neutrophils % 76.9 % (42-78) 10/22/19 07:45 Sodium 135.4 mmol/L (137-145) L 10/20/19 09:43 Potassium 4.5 mmol/L (3.6-5.0) 10/20/19 09:43 Chloride 110 mmol/L (98-107) H 10/20/19 09:43 Carbon Dioxide 18 mmol/L (22-30) L 10/20/19 09:43 Anion Gap 7 (5-19) 10/20/19 09:43 BUN 18 mg/dL (7-20) 10/20/19 09:43 Creatinine 0.90 mg/dL (0.52-1.25) 10/20/19 09:43 Est GFR ( Amer) > 60 (>60) 10/20/19 09:43 Est GFR (MDRD) Non-Af > 60 (>60) 10/20/19 09:43 Glucose 170 mg/dL (75-110) H 10/20/19 09:43 Uric Acid 8.5 mg/dL (2.5-6.2) H 10/20/19 09:43 Calcium 8.9 mg/dL (8.4-10.2) 10/20/19 09:43 Total Bilirubin 0.3 mg/dL (0.2-1.3) 10/20/19 09:43 Direct Bilirubin 0.0 mg/dL (0.0-0.4) 10/20/19 09:43 Neonat Total Bilirubin Not Reportable 10/20/19 09:43 Neonat Direct Bilirubin Not Reportable 10/20/19 09:43 Neonat Indirect Bili Not Reportable 10/20/19 09:43 AST 23 U/L (14-36) 10/20/19 09:43 ALT 12 U/L (<35) 10/20/19 09:43 Alkaline Phosphatase 256 U/L (38-126) H 10/20/19 09:43 Lactate Dehydrogenase 175 U/L (120-246) 10/20/19 09:43 Total Protein 6.1 g/dL (6.3-8.2) L 10/20/19 09:43 Albumin 3.1 g/dL (3.5-5.0) L 10/20/19 09:43 Urine Color STRAW 10/18/19 10:30 Urine Appearance CLEAR 10/18/19 10:30 Urine pH 7.0 (5.0-9.0) 10/18/19 10:30 Ur Specific [place] 1.005 10/18/19 10:30 Urine Protein 100 mg/dL (NEGATIVE) H 10/18/19 10:30 Urine Glucose (UA) NEGATIVE mg/dL (NEGATIVE) 10/18/19 10:30 Urine Ketones NEGATIVE mg/dL (NEGATIVE) 10/18/19 10:30 Urine Blood NEGATIVE (NEGATIVE) 10/18/19 10:30 Urine Nitrite NEGATIVE (NEGATIVE) 10/18/19 10:30 Urine Bilirubin NEGATIVE (NEGATIVE) 10/18/19 10:30 Urine Urobilinogen NEGATIVE mg/dL (<2.0) 10/18/19 10:30 Ur Leukocyte Esterase NEGATIVE (NEGATIVE) 10/18/19 10:30 Urine WBC (Auto) 1 /HPF 10/18/19 10:30 Urine RBC (Auto) 0 /HPF 10/18/19 10:30 Squamous Epi Cells Auto 1 /HPF 10/18/19 10:30 Ur 24 Hour Volume 820 mL 10/19/19 13:18 Urine Creatinine 30.8 mg/dL (16-327) 10/18/19 10:30 Ur Total Protein 24 Hr 2336 mg/day (42-225) H 10/19/19 13:18 Protein/Creatinin Ratio 8.1 mg/mg (0.0-0.2) H 10/18/19 10:30 Urine Total Protein 284.9 mg/dL (<12) H 10/19/19 13:18 Urine Ascorbic Acid NEGATIVE (NEGATIVE) 10/18/19 10:30 Urine Opiates Screen NEGATIVE 10/18/19 10:30 Urine Methadone Screen NEGATIVE 10/18/19 10:30 Ur Barbiturates Screen NEGATIVE 10/18/19 10:30 Ur Phencyclidine Scrn NEGATIVE 10/18/19 10:30 Ur Amphetamines Screen NEGATIVE 10/18/19 10:30 U Benzodiazepines Scrn NEGATIVE 10/18/19 10:30 Urine Cocaine Screen NEGATIVE 10/18/19 10:30 U Marijuana (THC) Screen NEGATIVE 10/18/19 10:30 RPR NONREACTIVE (NONREACTIVE) 10/18/19 11:54 Chlamydia DNA (PCR) NOT DETECTED (NOT DETECT) 10/18/19 14:55 N.gonorrhoeae DNA (PCR) NOT DETECTED (NOT DETECT) 10/18/19 14:55 Blood Type B NEGATIVE 10/23/19 06:39 Antibody Screen Cancelled 10/23/19 06:39 Antibody Identification RHOGAM INDUCED ANTI-D 10/18/19 11:54 Screen NEGATIVE 10/23/19 06:39 Crossmatch See Detail 10/18/19 11:54 Impressions: Obstetrics Ultrasound 10/18/19 00:00 IMPRESSION: LIMITED OBSTETRICAL ULTRASOUND WITH MEASURED PARAMETERS DELINEATED ABOVE. Trimester of : Third trimester - 28 weeks to delivery. Plan Plan of Treatment: follow up in one week for BP check and incision check
[2019-10-25] MEDS: IBUPROFEN 800 MG TABLET PO SCH ×2 (06:07→12:14)
[2019-10-25] MEDS: LABETALOL HCL 200 MG TABLET PO SCH (06:08)
[2019-10-25] MEDS: NIFEDIPINE 30 MG TAB.ER.24 PO SCH (10:56)
[2019-10-25] MEDS: PRENATAL VITAMIN W DHA CAPSULE PO SCH (10:56)
[2019-10-25] MEDS: DOCUSATE SODIUM 100 MG CAPSULE PO SCH (10:57)
[2019-10-25 11:29] VITALS: BP 134/83
--- NOTE | 2019-10-25 12:05 | PDOC DISCHARGE SUMMARY ---
Impression - Admit/DC Date/PCP Admission Date/Primary Care Provider: 10/18/19 13:41 Discharge Date: 10/25/19 - Discharge Diagnosis (1) Delivery by section of full-term Is this a current diagnosis for this admission?: Yes (2) Rh negative state in antepartum period Is this a current diagnosis for this admission?: Yes (3) IUGR (intrauterine growth restriction) Is this a current diagnosis for this admission?: Yes (4) Chronic hypertension with superimposed preeclampsia Is this a current diagnosis for this admission?: Yes (5) Failed induction of labor Is this a current diagnosis for this admission?: Yes - Additional Information Resuscitation Status: Full Code - stable for discharge, verbalized understanding of pp warning s/s. needs appt wednesday for incision and bp check Discharge Diet: Regular Discharge Activity: Balance Activity w/Rest, No Lifting Over 10 Pounds, No Lifting/Push/Pulling, Pelvic Rest, No tub bath, Walk Frequently Referrals: [facility] [Provider Group] Prescriptions: Oxycodone HCl/Acetaminophen [Percocet 5-325 mg Tablet] 1 tab PO Q4HP PRN #30 ta blet PRN Reason: Ibuprofen [Motrin 800 mg Tablet] 800 mg PO Q8HP PRN #60 tablet PRN Reason: Labetalol HCl [Normodyne 200 mg Tablet] 200 mg PO Q8 #90 tablet Albuterol Sulfate [Proair Hfa Inhalation Aerosol 8.5 gm Mdi] 1 puff IH Q4 PRN #1 mdi PRN Reason: Nifedipine [Procardia XL 30 mg Tablet] 60 mg PO DAILY #30 tab.er.24 Home Medications: Vits96/Iron Fum/Folic [ Tablet] 1 tab PO DAILY 10/18/19 Albuterol Sulfate [Proair Hfa Inhalation Aerosol 8.5 gm Mdi] 1 puff IH Q4 PRN #1 mdi 10/24/19 Ibuprofen [Motrin 800 mg Tablet] 800 mg PO Q8HP PRN #60 tablet 10/24/19 Labetalol HCl [Normodyne 200 mg Tablet] 200 mg PO Q8 #90 tablet 10/24/19 Nifedipine [Procardia XL 30 mg Tablet] 60 mg PO DAILY #30 tab.er.24 10/24/19 Oxycodone HCl/Acetaminophen [Percocet 5-325 mg Tablet] 1 tab PO Q4HP PRN #30 tablet 10/24/19 Results Laboratory Results: WBC 13.1 10^3/uL (4.0-10.5) H 10/23/19 06:39 RBC 3.45 10^6/uL (3.72-5.28) L 10/23/19 06:39 Hgb 10.1 g/dL (12.0-15.5) L D 10/23/19 06:39 Hct 28.6 % (36.0-47.0) L 10/23/19 06:39 MCV 83 fl (80-97) 10/23/19 06:39 MCH 29.2 pg (27.0-33.4) 10/23/19 06:39 MCHC 35.2 g/dL (32.0-36.0) 10/23/19 06:39 RDW 14.5 % (11.5-14.0) H 10/23/19 06:39 Plt Count 162 10^3/uL (150-450) 10/23/19 06:39 Lymph % (Auto) 14.2 % (13-45) 10/22/19 07:45 [place] % (Auto) 8.7 % (3-13) 10/22/19 07:45 Eos % (Auto) 0.1 % (0-6) 10/22/19 07:45 Baso % (Auto) 0.1 % (0-2) 10/22/19 07:45 Absolute Neuts (auto) 7.1 10^3/uL (1.7-8.2) 10/22/19 07:45 Absolute Lymphs (auto) 1.3 10^3/uL (0.5-4.7) 10/22/19 07:45 Absolute Monos (auto) 0.8 10^3/uL (0.1-1.4) 10/22/19 07:45 Absolute Eos (auto) 0.0 10^3/uL (0.0-0.6) 10/22/19 07:45 Absolute Basos (auto) 0.0 10^3/uL (0.0-0.2) 10/22/19 07:45 Seg Neutrophils % 76.9 % (42-78) 10/22/19 07:45 Sodium 135.4 mmol/L (137-145) L 10/20/19 09:43 Potassium 4.5 mmol/L (3.6-5.0) 10/20/19 09:43 Chloride 110 mmol/L (98-107) H 10/20/19 09:43 Carbon Dioxide 18 mmol/L (22-30) L 10/20/19 09:43 Anion Gap 7 (5-19) 10/20/19 09:43 BUN 18 mg/dL (7-20) 10/20/19 09:43 Creatinine 0.90 mg/dL (0.52-1.25) 10/20/19 09:43 Est GFR ( Amer) > 60 (>60) 10/20/19 09:43 Est GFR (MDRD) Non-Af > 60 (>60) 10/20/19 09:43 Glucose 170 mg/dL (75-110) H 10/20/19 09:43 Uric Acid 8.5 mg/dL (2.5-6.2) H 10/20/19 09:43 Calcium 8.9 mg/dL (8.4-10.2) 10/20/19 09:43 Total Bilirubin 0.3 mg/dL (0.2-1.3) 10/20/19 09:43 Direct Bilirubin 0.0 mg/dL (0.0-0.4) 10/20/19 09:43 Neonat Total Bilirubin Not Reportable 10/20/19 09:43 Neonat Direct Bilirubin Not Reportable 10/20/19 09:43 Neonat Indirect Bili Not Reportable 10/20/19 09:43 AST 23 U/L (14-36) 10/20/19 09:43 ALT 12 U/L (<35) 10/20/19 09:43 Alkaline Phosphatase 256 U/L (38-126) H 10/20/19 09:43 Lactate Dehydrogenase 175 U/L (120-246) 10/20/19 09:43 Total Protein 6.1 g/dL (6.3-8.2) L 10/20/19 09:43 Albumin 3.1 g/dL (3.5-5.0) L 10/20/19 09:43 Urine Color STRAW 10/18/19 10:30 Urine Appearance CLEAR 10/18/19 10:30 Urine pH 7.0 (5.0-9.0) 10/18/19 10:30 Ur Specific [place] 1.005 10/18/19 10:30 Urine Protein 100 mg/dL (NEGATIVE) H 10/18/19 10:30 Urine Glucose (UA) NEGATIVE mg/dL (NEGATIVE) 10/18/19 10:30 Urine Ketones NEGATIVE mg/dL (NEGATIVE) 10/18/19 10:30 Urine Blood NEGATIVE (NEGATIVE) 10/18/19 10:30 Urine Nitrite NEGATIVE (NEGATIVE) 10/18/19 10:30 Urine Bilirubin NEGATIVE (NEGATIVE) 10/18/19 10:30 Urine Urobilinogen NEGATIVE mg/dL (<2.0) 10/18/19 10:30 Ur Leukocyte Esterase NEGATIVE (NEGATIVE) 10/18/19 10:30 Urine WBC (Auto) 1 /HPF 10/18/19 10:30 Urine RBC (Auto) 0 /HPF 10/18/19 10:30 Squamous Epi Cells Auto 1 /HPF 10/18/19 10:30 Ur 24 Hour Volume 820 mL 10/19/19 13:18 Urine Creatinine 30.8 mg/dL (16-327) 10/18/19 10:30 Ur Total Protein 24 Hr 2336 mg/day (42-225) H 10/19/19 13:18 Protein/Creatinin Ratio 8.1 mg/mg (0.0-0.2) H 10/18/19 10:30 Urine Total Protein 284.9 mg/dL (<12) H 10/19/19 13:18 Urine Ascorbic Acid NEGATIVE (NEGATIVE) 10/18/19 10:30 Urine Opiates Screen NEGATIVE 10/18/19 10:30 Urine Methadone Screen NEGATIVE 10/18/19 10:30 Ur Barbiturates Screen NEGATIVE 10/18/19 10:30 Ur Phencyclidine Scrn NEGATIVE 10/18/19 10:30 Ur Amphetamines Screen NEGATIVE 10/18/19 10:30 U Benzodiazepines Scrn NEGATIVE 10/18/19 10:30 Urine Cocaine Screen NEGATIVE 10/18/19 10:30 U Marijuana (THC) Screen NEGATIVE 10/18/19 10:30 RPR NONREACTIVE (NONREACTIVE) 10/18/19 11:54 Chlamydia DNA (PCR) NOT DETECTED (NOT DETECT) 10/18/19 14:55 N.gonorrhoeae DNA (PCR) NOT DETECTED (NOT DETECT) 10/18/19 14:55 Blood Type B NEGATIVE 10/23/19 06:39 Antibody Screen Cancelled 10/23/19 06:39 Antibody Identification RHOGAM INDUCED ANTI-D 10/18/19 11:54 Screen NEGATIVE 10/23/19 06:39 Crossmatch See Detail 10/18/19 11:54 Impressions: Obstetrics Ultrasound 10/18/19 00:00 IMPRESSION: LIMITED OBSTETRICAL ULTRASOUND WITH MEASURED PARAMETERS DELINEATED ABOVE. Trimester of : Third trimester - 28 weeks to delivery. Plan Plan of Treatment: follow up in one week for BP check and incision check
== END 2019-10-25 12:10 | disposition home or self-care (01) | DRG 787 ==
LOC: LC 10:17 → LR 13:41 → 2S 10-19 09:35 → LR 10-20 02:05 → 2S 10-22 11:41
PROVIDERS: ADMIT Obstetrics & Gynecology; ATTEND Obstetrics & Gynecology
PROC: 10D00Z1 Extraction of Products of Conception, Low, Open Approach (ICD-10-PCS; principal; 2019-10-22)
PROC: 3E033VJ Introduction of Other Hormone into Peripheral Vein, Percutaneous Approach (ICD-10-PCS; 2019-10-22)
PROC: 3E0334Z Introduction of Serum, Toxoid and Vaccine into Peripheral Vein, Percutaneous Approach (ICD-10-PCS; 2019-10-22)
DX: O11.4 Pre-existing hypertension with pre-eclampsia, complicating childbirth (principal); O36.0930 Maternal care for other rhesus isoimmunization, third trimester, not applicable or unspecified; O76 Abnormality in fetal heart rate and rhythm complicating labor and delivery; O36.5930 Maternal care for other known or suspected poor fetal growth, third trimester, not applicable or unspecified; O61.0 Failed medical induction of labor; Z3A.35 35 weeks gestation of pregnancy; Z37.0 Single live birth; Z79.899 Other long term (current) drug therapy
CPT/HCPCS: 1961; 36415; 59025; 76815; 80053; 80307; 81001; 82570; 83615; 84156; 84550; 85025; 85027; 85461; 86592; 86850; 86870; 86900; 86901; 86920; 86922; 87077; 87081; 87491; 87591; 90715; 94760; 94799; C1726; J0131; J0360; J0690; J0702; J1100; J1170; J1885; J2250; J2270; J2405; J2540; J2590; J2790; J3475; J3490; J7060; J7120

== ENCOUNTER 2019-12-09 15:53 | Emergency (ER) | payer MEDICAID ==
--- NOTE | 2019-12-09 16:26 | ER Document Report ---
ED Medical Screen (RME) - General Chief Complaint: Abscess Stated Complaint: ABSCESS/UNDER ARM AND VAGINAL Time Seen by Provider: 12/09/19 16:24 Mode of Arrival: Ambulatory Information source: Patient Notes: 24-year-old female presented to ED for complaint of abscesses 1 on her buttocks to under her right arm one on the left arm. She states she had 1 I&D last year. She states last menstrual period was November 23 she has had a baby in October. She has history of high blood pressure and no other past medical history. Patient refused any medications at this time. I have greeted and performed a rapid initial assessment of this patient. A comprehensive ED assessment and evaluation of the patient, analysis of test results and completion of medical decision making process will be conducted by an additional ED providers. TRAVEL OUTSIDE OF THE [place] IN LAST 30 DAYS: No - Related Data Allergies/Adverse Reactions: No Known Allergies Allergy (Verified 10/18/19 10:32) Past Medical History - Social History Chew tobacco use (# tins/day): No Frequency of alcohol use: None Drug Abuse: None - Past Medical History Cardiac Medical History: Reports: Hx Hypertension Pulmonary Medical History: Reports: Hx Asthma Renal/ Medical History: Denies: Hx Peritoneal Dialysis Past Surgical History: Reports: Hx Gynecologic Surgery - D AND C Physical Exam - Vital signs Vitals: Temp Pulse Resp BP Pulse Ox 98.3 F 86 18 182/116 H 99 12/09/19 16:02 12/09/19 16:02 12/09/19 16:02 12/09/19 16:02 12/09/19 16:02 Course - Vital Signs Vital signs: Temp Pulse Resp BP Pulse Ox 98.3 F 86 18 182/116 H 99 12/09/19 16:18 12/09/19 16:02 12/09/19 16:02 12/09/19 16:02 12/09/19 16:02
[2019-12-09] MEDS ORDERED: SULFAMETHOXAZOLE/TRIMETHOPRIM 800-160 MG TABLET PO ONE (18:03)
[2019-12-09] MEDS ORDERED: LIDOCAINE 1% INJ (10 MG/ML) 10 ML MDV INJ ONE (18:04)
--- NOTE | 2019-12-09 18:05 | ER Document Report ---
ED General - General Chief Complaint: Abscess Stated Complaint: ABSCESS/UNDER ARM AND VAGINAL Time Seen by Provider: 12/09/19 16:24 Mode of Arrival: Ambulatory Notes: HPI: 24-year-old female with a history of abscesses who presents today with a small abscess under her right axilla starting about a week ago and an abscess to her right mons pubis around 3 days ago. No fevers or vomiting. No history of diabetes. Tetanus is up-to-date. ROS: See HPI All other review of systems reviewed and otherwise negative Reviewed vital signs and nursing note as charted by RN. PHYSICAL EXAM: CONSTITUTIONAL: Alert and oriented and responds appropriately to questions. Well-appearing; well-nourished EXT: Small nontender nonfluctuant area of swelling to the right armpit. No surrounding erythema SKIN: Mounter present I did perform female examination showing a tender fluctuant abscess to the inguinal crease right to the right of the mons pubis TRAVEL OUTSIDE OF THE [place] IN LAST 30 DAYS: No - Related Data Allergies/Adverse Reactions: No Known Allergies Allergy (Verified 10/18/19 10:32) Past Medical History - General Information source: Patient - Social History Smoking Status: Never Smoker Chew tobacco use (# tins/day): No Frequency of alcohol use: None Drug Abuse: None Family History: Reviewed & Not Pertinent Patient has homicidal ideation: No - Past Medical History Cardiac Medical History: Reports: Hx Hypertension Pulmonary Medical History: Reports: Hx Asthma Renal/ Medical History: Denies: Hx Peritoneal Dialysis Past Surgical History: Reports: Hx Gynecologic Surgery - D AND C Physical Exam - Vital signs Vitals: Temp Pulse Resp BP Pulse Ox 98.3 F 86 18 182/116 H 99 12/09/19 16:02 12/09/19 16:02 12/09/19 16:02 12/09/19 16:02 12/09/19 16:02 Course - Re-evaluation Re-evalutation: 12/09/19 18:05 Given the above history and physical we will perform a bedside incision and drainage and provide antibiotics as well as check the patient's Accu-Chek. I do not believe the right axillary abscess needs incision and drainage as I do not detect any fluctuance or tenderness to that area. 12/09/19 18:48 I&D performed. Patient still looks excellent. Antibiotics have been provided. Patient is not breast-feeding. Patient will be discharged home with strict return precautions. - Vital Signs Vital signs: Temp Pulse Resp BP Pulse Ox 98.3 F 86 18 182/116 H 99 12/09/19 16:18 12/09/19 16:02 12/09/19 16:02 12/09/19 16:02 12/09/19 16:02 Procedures - Incision and Drainage Right Groin Type: Simple Anesthetic type: 1% Lidocaine Blade size: 11 I&D procedure: Betadine prep applied, Chlorprep applied Incision Method: Incision made by scalpel Amount/type of drainage: Minimal Notes: 12/09/19 18:48 Good I&D with probing in the loculation without packing Discharge - Discharge Clinical Impression: Groin abscess Condition: Good Disposition: HOME, SELF-CARE Additional Instructions: Come back immediately for any increased pain, swelling, fever, vomiting, or any other acute problems. You may take 600 mg of ibuprofen and 1 g of Tylenol every 6 hours as needed for pain. Please make sure that you follow up with the primary care physician/OBGYN for reassment. Prescriptions: Sulfamethoxazole/Trimethoprim [Bactrim Ds Tablet] 2 each PO BID 10 Days #40 tablet Referrals: MAGGIE RIOS MD [ACTIVE PROVISIONAL STAFF] - Follow up as needed
[2019-12-09 19:14] VITALS: BP 178/92
== END 2019-12-09 19:14 | disposition home or self-care (01) ==
LOC: ER 15:53
DX: L02.413 Cutaneous abscess of right upper limb (principal); L02.414 Cutaneous abscess of left upper limb; L02.214 Cutaneous abscess of groin; I10 Essential (primary) hypertension
CPT/HCPCS: 99283; 82962; 10060; J3490 ×2